=== PATIENT | male | born 1950 | race American Indian/Alaskan Native ===

== ENCOUNTER 2017-10-29 12:30 | Outpatient (CLI) | payer MEDICARE, OTHER ==
--- NOTE | 2017-10-29 13:07 | XRay Report ---
XRAY RIGHT HIP TWO VIEWS: 10/29/17 12:30:00 CLINICAL: Right hip pain. FINDINGS: No fracture or dislocation.Mild osteoarthritis with mild narrowing of the superolateral joint space and superior acetabular eburnation. Similar changes in the left hip. The pelvic bones are intact. The SI joints are normal. Benign soft tissue calcifications. Degenerative changes in the lower lumbar spine. IMPRESSION: Mild osteoarthritis.
== END 2017-10-29 12:31 | disposition home or self-care (01) ==
LOC: SPVIMAG 12:30
PROVIDERS: ATTEND Orthopaedic Surgery Sports Medicine
DX: M16.11 Unilateral primary osteoarthritis, right hip (principal); M47.896 Other spondylosis, lumbar region